=== PATIENT | male | born 1995 ===

== ENCOUNTER 2018-01-10 06:55 | Outpatient (CLI) | payer OTHER ==
[~2018-01-10 06:55] MED LIST: VALTREX1000 MG; ZYRTEC10 M3
== END 2018-01-10 07:19 | disposition home or self-care (01) ==
LOC: LAB 06:55
DX: R42 Dizziness and giddiness (principal); E78.5 Hyperlipidemia, unspecified; R51 Headache

== ENCOUNTER 2018-01-15 08:47 | Outpatient (CLI) | payer OTHER | END 2018-01-15 09:12 | disposition home or self-care (01) | LOC: LAB 08:47 | DX: R94.5 Abnormal results of liver function studies (principal); B17.9 Acute viral hepatitis, unspecified ==